=== PATIENT | male | born 2005 | race Caucasian/White ===

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

== ENCOUNTER 2024-02-19 22:49 | Emergency (ER) | payer OTHER, SELFPAY ==
--- NOTE | 2024-02-19 | RAD_ITS ---
EXAM: XR LUMBOSACRAL SPINE, 4 OR 5 VIEWS CLINICAL INDICATION: pain TECHNIQUE: Frontal, lateral and bilateral oblique views of the lumbar spine. COMPARISON: No relevant prior studies available. FINDINGS: VERTEBRAE: Unremarkable. Preserved vertebral body height. No fracture. No spondylolisthesis. Preservation of the normal lumbar lordosis. No significant facet arthropathy. DISC SPACES: No acute findings. Disc spaces are maintained. GASTROINTESTINAL TRACT: Unremarkable as visualized. Included bowel gas pattern is non-obstructive. RAD/L/S Spine Min 4 Views IMPRESSION: No evidence of lumbar spinal fracture or spondylolisthesis. Electronically Signed: Harry Vitale MD at 0:34 EDT ,
[2024-02-19 22:50] VITALS: BP 132/66; PULSE 82; RESP 16; TEMP 36.5; O2SAT 99; BMI 29.7
[2024-02-19] MEDS: Orphenadrine 60 MG/2 ML Ampul IM (23:42)
[2024-02-19] MEDS: Ketorolac 30 MG/ML Syringe IM (23:42)
[2024-02-20 00:26] LABS: Bacteria 0 SEEN /hpf (None Seen); Mucous, Urine 0 SEEN /hpf (<or=2+); Squamous Epithelial Cells - UA 0 SEEN /hpf (0-5); White Blood Cells 0 SEEN /hpf (0-5)
[2024-02-20 00:27] LABS: Color, Urine Yellow (Yellow); Glucose, Dipstick Normal (Normal); Ketone-Dipstick Negative (Negative); Leukocyte Esterase-Dipstick Negative /ul (Negative); Nitrite-Dipstick Negative (Negative); Occult Blood-Urine Negative /ul (Negative); Protein-Dipstick 15 mg/dl (Negative); Urine Bilirubin Dipstick Negative (Negative); Urine Clarity Clear (Clear); Urine Urobilinogen 1 mg/dl (Normal)
[2024-02-20 00:49] VITALS: BP 121/59; PULSE 61; RESP 16; O2SAT 100
[2024-02-20 01:10] LABS: Red Blood Cells-Urine 0-5 SEEN /hpf (0-5)
--- NOTE | 2024-02-20 01:36 | EX.ED.DYSGE1 ---
HPI History of Present Illness Chief Complaint: Abd Pain Informant: patient Narrative Narrative: Patient is a 18-year-old male with no significant past medical history. He states for the last few days she has been having pain in his left sided abdomen/low back. He states the pain is worse with motion. He does admit to a manual labor job but denies any trauma or excessive activity or sudden onset of pain. He states that there is been no nausea vomiting diarrhea dysuria or hematuria. He denies any loss of bowel or bladder control or IV drug use. However because of the pain persisting over the last few days he presents for evaluation [facility] Medical History no medical history Home Medications ?Medication ?Instructions ?Recorded ?Last Taken ?Type methocarbamol 500 mg tablet 1,000 mg (2 x 500 mg) PO 4X/DAY 02/20/24 Unknown Rx PRN Muscle pain/spasm #56 tabs Allergy/AdvReac Type Severity Reaction Status Date / Time No Known Allergies Allergy Verified 02/19/24 22:51 Social History Smoking Status: Never smoker ROS ROS ED Constitutional Constitutional ED: Denies chills or fever(s) ENT ENT ED: Denies sore throat Cardiovascular Cardiovascular: Denies chest pain, palpitations or racing heartbeat Respiratory/Chest Respiratory/Chest: Denies cough or dyspnea Gastrointestinal Gastrointestinal: Reports abdominal pain; Denies diarrhea, nausea or vomiting Genitourinary Genitourinary ED: Denies dysuria, hematuria or urinary frequency Musculoskeletal Musculoskeletal: Reports back pain Integumentary Denies Abrasions or rash Neurologic Neurologic: Denies headache(s), paresthesias or weakness Hematologic/Lymphatic Hematologic/Lymphatic: Denies easy bleeding or easy bruising EXAM Physical Exam Const Vital Signs: 02/19/24 22:50 02/20/24 00:49 02/20/24 01:43 Temperature 97.7 F L 98.9 F Temperature Source Oral Pulse Rate 82 61 67 Respiratory Rate 16 16 16 Blood Pressure 132/66 H 121/59 H 121/59 H Blood Pressure Mean 88 79 79 Pulse Ox 99 100 99 Oxygen Delivery Method Room Air Room Air Positive well nourished and well developed General Appearance ED: well developed; Negative for pallor HEENT HEENT Narrative: Normocephalic atraumatic Eyes PERRL and EOMs intact bilaterally General Eye ED: Negative for scleral icterus Neck supple Resp normal respiratory effort and clear to auscultation bilaterally Cardio regular rate and regular rhythm Rate: other Other Details: Regular rate and rhythm without murmurs rubs or gallops Radial and carotid pulses are equal and symmetric GI normal to inspection, nondistended, normoactive bowel sounds, non-tender, non-distended and no masses GI Narrative: No voluntary guarding or rigidity or pulsatile mass Auscultation: normoactive bowel sounds Palpation: soft Back/Spine Back/Spine Narrative: No bony deformity or step-off of the thoracic or lumbar spine but there is midline lumbar tenderness to palpation noted No saddle anesthesia. Negative straight leg raise. No clonus or Babinski. Patellar reflexes are plus 3 out of 4 bilaterally. There is tension and spasm noted of the left psoas muscle compared to right. There is pain on palpation at this site. Pain worsens with extension and rotation Extremity normal to inspection Neuro oriented x3, CN's II-XII intact bilaterally and no sensory deficits noted Sensorium / Orientation: alert Motor Exam: strength 5/5 throughout Psych mental status grossly normal Skin no rashes or lesions noted and no wounds Skin Narrative: No overlying soft tissue changes to suggest trauma or infection General Skin Exam: Negative for jaundice or pallor MDM MDM MDM Narrative Medical decision making narrative: Patient arrived to ER stable vitals and reported pain along the left side low back that was worse with motion. He denied loss of bowel or bladder control or IV drug use and therefore I have low concern for cauda equina or epidural abscess. He denies any recent surgery and this goes against potential discitis. He also denies any hematuria or dysuria going against UTI/pyelonephritis or kidney stone. His exam is most consistent with lumbosacral strain but in order to ensure this is not a potential kidney stone or due to bony injury an x-ray was obtained. X-ray revealed no acute findings and urine sample showed no sign of infection or blood going against pyelonephritis or kidney stone. Therefore symptoms are most consistent with lumbosacral strain he was given Toradol and Norflex and did have improvement of his symptoms and is otherwise safe for discharge History & Record Review Discussion w/independent historian: Patient Lab Data Attestation: I reviewed the patient's lab results. Labs: Laboratory Results - last 24 hr 02/20/24 00:20 Urine Color Yellow Urine Clarity Clear Urine pH 6.0 Ur Specific [place] 1.020 Urine Protein 15 H Urine Glucose (UA) Normal Urine Ketones Negative Urine Occult Blood Negative Urine Nitrite Negative Urine Bilirubin Negative Urine Urobilinogen 1 H Ur Leukocyte Esterase Negative Urine RBC 0-5 SEEN Urine WBC 0 SEEN Ur Squamous Epith Cells 0 SEEN Urine Bacteria 0 SEEN Urine Mucus 0 SEEN Radiography Diagnostic Testing: Clinical Impression(s) from Imaging Studies Lumbar Spine X-Ray 02/19/24 00:00 IMPRESSION: No evidence of lumbar spinal fracture or spondylolisthesis. Electronically Signed: Harry Vitale MD at 0:34 EDT , X-ray of the lumbosacral spine as interpreted by the emergency medicine physician reveals no acute compression fracture or spondylolisthesis Discharge Plan Triage Chief Complaint: Abd Pain ED Provider: Andrea Gunter Dx/Rx/DC Orders Clinical Impression: Acute myofascial strain of lumbosacral region Instructions: Understanding Lumbosacral Strain Prescriptions: New methocarbamol 500 mg tablet 1,000 mg PO 4X/DAY PRN (Reason: Muscle pain/spasm) Qty: 56 0RF Primary Care Provider: Care Physician,No Primary Referrals: Fransisco Barragan MD [Med Staff - Active Staff] - Care Physician,No Primary [Primary Care Provider] - Print Language: Danish Disposition Disposition: Home, Self Care Discharge Date/Time: 02/20/24 01:45
[2024-02-20 01:43] VITALS: BP 121/59; PULSE 67; RESP 16; TEMP 37.2; O2SAT 99
== END 2024-02-20 01:45 | disposition home or self-care (01) ==
PROVIDERS: Emergency Provider Emergency Medicine; Visit Provider Emergency Medicine
DX: S39.012A Strain of muscle, fascia and tendon of lower back, initial encounter (principal); X58.XXXA Exposure to other specified factors, initial encounter
CPT/HCPCS: 72110; 81001; 96372; 99283

== ENCOUNTER 2024-03-30 22:30 | Emergency (ER) | payer OTHER, SELFPAY ==
[2024-03-30 22:31] VITALS: BP 145/74; PULSE 70; RESP 16; TEMP 36.6; O2SAT 100; BMI 30.8
[2024-03-30 22:34] VITALS: PULSE 80; RESP 18; O2SAT 98
[2024-03-30 23:34] VITALS: PULSE 78; RESP 16; O2SAT 97
[2024-03-30 23:55] VITALS: BP 132/62; PULSE 82; RESP 18; O2SAT 100
[2024-03-30 23:56] VITALS: O2SAT 98
[2024-03-31 00:04] VITALS: BP 132/62; PULSE 82; RESP 18; TEMP 36.6; O2SAT 98
== END 2024-03-31 00:28 | disposition home or self-care (01) ==
PROVIDERS: Emergency Provider Emergency Medicine; Referring Provider Emergency Medicine; Visit Provider Emergency Medicine
DX: S09.90XA Unspecified injury of head, initial encounter (principal); S00.03XA Contusion of scalp, initial encounter; H02.402 Unspecified ptosis of left eyelid; W20.8XXA Other cause of strike by thrown, projected or falling object, initial encounter
CPT/HCPCS: 70450; 99282

== ENCOUNTER 2024-08-30 01:27 | Emergency (ER) | payer BC, SELFPAY ==
[2024-08-30 01:28] VITALS: BP 154/77; PULSE 83; RESP 18; TEMP 36.7; O2SAT 100; BMI 30.7
--- NOTE | 2024-08-30 01:28 | ED.VIS.DENTA ---
HPI History of Present Illness Chief Complaint: Dental Informant: patient Onset/Context/Timing Onset: Today Context: Sudden Onset Timing: Continuous Quality: Pain Location: Tooth #3 and tooth #32 Current Severity: Mild Maximum Severity: Severe Worsened by: Cold liquids Relieved by: - (Nothing) Associated Symptoms Assocated Symptom - Dental: face swelling and cold sensitivity; Negative for fever, jaw swelling or hot sensitivity PFSH PFSH Medical History no medical history Home Medications ?Medication ?Instructions ?Recorded ?Last Taken ?Type hydrocodone-acetaminophen 5-325mg 1 tab PO Q6H PRN PRN Pain 3 days 08/30/24 Unknown Rx 5mg-325mg #10 TABLETS naproxen 500 mg tablet 500 mg PO BID #14 tabs 08/30/24 Unknown Rx penicillin V potassium 250 mg 500 mg (2 x 250 mg) PO 4X/DAY #28 08/30/24 Unknown Rx tablet tabs Allergy/AdvReac Type Severity Reaction Status Date / Time No Known Allergies Allergy Verified 08/30/24 01:29 Social History Smoking Status: Never smoker Discharge Plan Triage Chief Complaint: Dental ED Provider: Ari Falcon Dx/Rx/DC Orders Clinical Impression: Dental caries extending into pulp, Dental caries extending into dentine, Symptomatic reversible pulpitis, Gingivitis, acute, non-plaque induced, Chronic periodontal disease Instructions: ED Tooth Abscess Prescriptions: New hydrocodone-acetaminophen 5-325 mg tablet 1 tab PO Q6H PRN PRN (Reason: Pain) 3 Days Qty: 10 0RF penicillin V potassium 250 mg tablet 500 mg PO 4X/DAY Qty: 28 0RF naproxen 500 mg tablet 500 mg PO BID Qty: 14 0RF Primary Care Provider: Care Physician,No Primary Referrals: Care Physician,No Primary [Primary Care Provider] - Dentist,Your [STAFF PHYSICIAN] - Keep Kelly appointment Print Language: Malay Disposition Disposition: Home, Self Care
[2024-08-30] MEDS: Naproxen 500 MG Tablet PO (01:34)
[2024-08-30] MEDS: Penicillin Vk 250 MG Tablet 500 MG PO (01:34)
--- NOTE | 2024-08-30 01:34 | ED.VIS.DENTA ---
HPI History of Present Illness Chief Complaint: Dental Narrative Narrative: This to be combined with the first dictation that was inadvertently signed. Patient presents with dental pain. Patient states the pain is worse with cold liquids. He denies fever, chills night sweats. He denies a traumatic fever, heart murmur, SBE or mitral prolapse. He denies difficulty open and close his mouth. He denies drooling. He denies change in voice. Prior similar symptoms: Yes Recent Illness/Hospitalization: No PFSH PFSH Medical History no medical history Home Medications ?Medication ?Instructions ?Recorded ?Last Taken ?Type hydrocodone-acetaminophen 5-325mg 1 tab PO Q6H PRN PRN Pain 3 days 08/30/24 Unknown Rx 5mg-325mg #10 TABLETS naproxen 500 mg tablet 500 mg PO BID #14 tabs 08/30/24 Unknown Rx penicillin V potassium 250 mg 500 mg (2 x 250 mg) PO 4X/DAY #28 08/30/24 Unknown Rx tablet tabs Allergy/AdvReac Type Severity Reaction Status Date / Time No Known Allergies Allergy Verified 08/30/24 01:29 Social History Smoking Status: Never smoker ROS ROS ED Constitutional Constitutional ED: Denies chills, fever(s), subjective or sweats Eyes Eyes: Denies blurry vision or change in vision ENT ENT ED: Reports other Details: Documented in the HPI narrative ; Denies ear pain, rhinorrhea or sore throat Cardiovascular Cardiovascular: Reports other Details: Documented HPI narrative ; Denies chest pain or palpitations Gastrointestinal Gastrointestinal: Denies nausea or vomiting Integumentary Denies rash EXAM Physical Exam Const Vital Signs: 08/30/24 01:28 Temperature 98.1 F Temperature Source Oral Pulse Rate 83 Respiratory Rate 18 Blood Pressure 154/77 H Blood Pressure Mean 102 Pulse Ox 100 Oxygen Delivery Method Room Air Positive well nourished and well developed General Appearance ED: well developed HEENT HEENT Narrative: There is no trismus. There is no dysphonia. There is no drooling. Patient has significant carry tooth #3 into the dentin. Tooth #32 is grossly abnormal. There is inflammation of the gum. There is no fluctuance. Negative for trauma or tenderness Face and Sinus: Negative for sinuses nontender Mouth ED: Yes oral and palatal mucosa normal, Yes lips normal, Yes tongue normal, Yes salivary gland normal, No mouth trauma and No oral and palatal mucosa abnormal Mouth: oral and palatal mucosa normal, lips normal, tongue normal, salivary gland normal, No mouth trauma and No oral and palatal mucosa abnormal Teeth and Gingiva: caries, gingiva abnormal and poor dentition Throat: posterior oropharynx normal Eyes PERRL and EOMs intact bilaterally General Eye ED: Negative for pale conjunctiva or scleral icterus Neck no lymphadenopathy, supple and no JVD Lymph Lymphatic: no lymphadenopathy noted Resp normal respiratory effort and clear to auscultation bilaterally Cardio regular rate, regular rhythm, S1 normal heart sound, S2 normal heart sound and no murmurs Extremity normal to inspection Neuro oriented x3 and CN's II-XII intact bilaterally Sensorium / Orientation: alert Psych mental status grossly normal Skin no rashes or lesions noted and no wounds MDM MDM MDM Narrative Medical decision making narrative: Patient with dental caries and dental abscess. He has findings consistent with reversible pulpitis. He was treated in the emergency department with penicillin and Naprosyn. Prescription for hydrocodone, Naprosyn and penicillin was written for. He did not receive opiate analgesia since he drove himself to the emergency department. History & Record Review Additional record(s) reviewed:: Prior ED visit (He was seen March 2024 for closed head injury. He was seen in January 2024 for myofascial strain of the lumbar sacral region. He was seen in June 2023 for dental caries.) Discharge Plan Triage Chief Complaint: Dental ED Provider: Ari Falcon Dx/Rx/DC Orders Clinical Impression: Dental caries extending into pulp, Dental caries extending into dentine, Symptomatic reversible pulpitis, Gingivitis, acute, non-plaque induced, Chronic periodontal disease Instructions: ED Tooth Abscess Prescriptions: New hydrocodone-acetaminophen 5-325 mg tablet 1 tab PO Q6H PRN PRN (Reason: Pain) 3 Days Qty: 10 0RF penicillin V potassium 250 mg tablet 500 mg PO 4X/DAY Qty: 28 0RF naproxen 500 mg tablet 500 mg PO BID Qty: 14 0RF Primary Care Provider: Care Physician,No Primary Referrals: Care Physician,No Primary [Primary Care Provider] - Dentist,Your [STAFF PHYSICIAN] - Keep Kelly appointment Print Language: Bengali Disposition Disposition: Home, Self Care
== END 2024-08-30 01:41 | disposition home or self-care (01) ==
LOC: ED 01:40
PROVIDERS: Emergency Provider Emergency Medicine; Visit Provider Emergency Medicine
DX: K02.9 Dental caries, unspecified (principal); K04.7 Periapical abscess without sinus; K04.01 Reversible pulpitis; K05.01 Acute gingivitis, non-plaque induced; K05.30 Chronic periodontitis, unspecified
CPT/HCPCS: 99283